=== PATIENT | female | born 1950 | race Caucasian/White ===

== ENCOUNTER 2017-05-29 06:29 | Day surgery (SDC) | payer MEDICARE, BC ==
[~2017-05-29] VITALS: Ht 157.5 cm; Wt 65.3 kg
[~2017-05-29 06:29] MED LIST: ASPIRIN EC81 MG PO; CALCIUM600 MG PO; CRESTOR10 MG PO; LISINOPRIL10 MG PO; METFORMIN HCL500 MG PO; OMEGA 3 1,0001 EACH PO; VITAMIN D-32000 UNIT PO
--- NOTE | 2017-05-29 08:10 | NUR ---
05/29/17 0810 Peyman Patricio RESPONDS TO TAP AND VOICE ON ENTRY TO PACU. DENIES NAUSEA OR PAIN. MD AT BEDSIDE REVIEWING PROCEDURE WITH PT AT 0810.
--- NOTE | 2017-05-30 13:58 | OR ---
[facility] [address] [place], [place] [address] Signed DATE OF OPERATION: SURGEON: Randall Chung MD PREOPERATIVE DIAGNOSES: Fecal urgency, history of infectious diarrhea treated (Giardia and Aeromonas hydrophila/caviae). 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 PROCEDURE: Total colonoscopy to cecum with biopsy of rectum. ANESTHESIA: Intravenous sedation, fentanyl 100 mcg and Versed . INDICATION: This 67-year-old white woman is a patient of Louis Flores. She suffered a bout of severe diarrhea in December of 2016, was treated with Flagyl for parasites noted on stool studies. This included Giardia as well as Aeromonas hydrophila/caviae. She is no longer bothered by diarrhea and her stools are well formed, but she still has symptoms of fecal urgency. She is admitted at this time to undergo colonoscopy. She understands the risks of bleeding, infection, and perforation. FINDINGS: The prep was excellent. Complete colonoscopy was undertaken to the cecum. There was no evidence of diverticular formation, colitis, cancer, polyps, or other abnormality. Biopsy was obtained of the rectum to assess for occult colitis (collagenous colitis is better). Most likely, she has a postinfectious irritable bowel syndrome. DESCRIPTION OF PROCEDURE: The patient was brought to the endoscopy suite and placed in lateral decubitus position and given intravenous sedation to the point of slurred speech and nystagmus. Digital rectal examination was normal. An Olympus video colonoscope was passed in the rectum and manipulated throughout the colon noting a very good bowel prep. Ultimately, the cecum was obtained. The ileocecal valve and appendiceal orifice were normal. Scope was withdrawn from that point and examination throughout undertaken. There was no evidence of polyps, diverticular Electronically Signed By: RANDALL CHUNG MD 05/30/17 1358 PATIENT NAME: ANTOINE MA OPERATIVE REPORT DATE OF : 52 REPORT #: [id number] PHYSICIAN: RANDALL CHUNG MD PCP: LOUIS FLORES REPORT IS CONFIDENTIAL AND NOT TO BE RELEASED WITHOUT AUTHORIZATION [facility] [address] [place], [place] [address] Signed formation, colitis, or cancer. Retroflex view of the rectum showed some internal hemorrhoidal changes, but nothing else. Biopsies were then taken of the rectum to assess for occult colitis. The scope was removed. The patient was taken to recovery room in good condition. CONCLUDING DIAGNOSIS: Her fecal urgency may be essentially a postinfectious irritable bowel syndrome. We will initiate Citrucel 1 tablespoon daily. If she is still having issues, she will let us know and we can re-evaluate. MD TACO Carnes/MODL /[id number] cc: NANNETTE Mckeon Copies: LOUIS FLORES ~ Electronically Signed By: RANDALL CHUNG MD 05/30/17 1358 PATIENT NAME: ANTOINE MA OPERATIVE REPORT DATE OF : 52 REPORT #: [id number] PHYSICIAN: RANDALL CHUNG MD PCP: LOUIS FLORES REPORT IS CONFIDENTIAL AND NOT TO BE RELEASED WITHOUT AUTHORIZATION
== END 2017-05-29 08:52 | disposition home or self-care (01) ==
LOC: DS 06:29 → OPS 06:29 → DS 06:45 → OPS 08:52
PROVIDERS: Surgery
PROC: 0DBP8ZX Excision of Rectum, Via Natural or Artificial Opening Endoscopic, Diagnostic (ICD-10-PCS; principal; 2017-05-29 06:45)
DX: K64.8 Other hemorrhoids (principal); E11.9 Type 2 diabetes mellitus without complications; K21.9 Gastro-esophageal reflux disease without esophagitis; I10 Essential (primary) hypertension; Z90.49 Acquired absence of other specified parts of digestive tract; Z98.890 Other specified postprocedural states; Z86.010 Personal history of colon polyps
CPT/HCPCS: 88305; 99153; G0500; J1100; J2250; J3010; J7120